=== PATIENT | female | born 1945 | race Caucasian/White ===

== ENCOUNTER 2018-08-04 22:31 | Emergency (ER) | payer MEDICARE ==
[~2018-08-04] VITALS: Ht 157.5 cm; Wt 68.0 kg
[2018-08-04 22:32] VITALS: Ht 157.5 cm; Wt 68.0 kg
[2018-08-04 22:49] LABS: BASOPHILS 0.2 % (0-2); EOSINOPHILS 2.4 % (0-7); HEMOGLOBIN 15.8 g/dL (12-16); IMMATURE GRANULOCYTES 0.2 % (0-5); LYMPHOCYTES 40.5 % (15-50); MCH 28.4 pg (26.0-34.0); MCHC 32.9 g/dL (31.0-37.0); MCV 86.3 fL (80.0-100.0); MEAN PLATELET VOLUME 10.3 fL (7.4-10.4); MONOCYTES 7.8 % (2-11); NEUTROPHILS 48.9 % (40-80); PLATELET COUNT 308 10x3/uL (130-400); RBC 5.56 10x6/uL (4.00-5.40); RDW 14.3 % (11.5-14.5); WBC 10.3 10x3/uL (4.8-10.8)
[2018-08-04 23:16] LABS: ALBUMIN 4.1 g/dL (3.4-5.0); ALKALINE PHOSPHATASE 72 U/L (46-116); ALT (SGPT) 23 U/L (10-68); BILIRUBIN - TOTAL 0.31 mg/dL (0.2-1.3); CALC OSMOLALITY 288 mosm/kg (275-300); CALCIUM 9.2 mg/dL (8.5-10.1); CARBON DIOXIDE 25.9 mmol/L (21.0-32.0); CHLORIDE - SERUM 101 mmol/L (98-107); GLUCOSE 193 mg/dL (74-106); POTASSIUM - SERUM 3.2 mmol/L (3.5-5.1); PROTEIN - SERUM 8.7 g/dL (6.4-8.2); SODIUM 141 mmol/L (136-145); UREA NITROGEN 21 mg/dL (7-18); eGFR NON AFRICAN AMERICAN 57 mL/min (90-120)
[2018-08-04 23:26] LABS: CKMB 2.7 U/L (0.0-3.6); CREATINE KINASE 173 UL (21-215); TROPONIN-I < 0.017 ng/mL (0.000-0.060)
[2018-08-05] MEDS ORDERED: HYDROCODON-ACE1 EAC7 PO (03:43)
[2018-08-05 04:52] VITALS: BP 143/73
== END 2018-08-05 04:52 | disposition home or self-care (01) ==
LOC: D.ER 22:31
PROVIDERS: Family Medicine
DX: S43.101A Unspecified dislocation of right acromioclavicular joint, initial encounter (principal); W19.XXXA Unspecified fall, initial encounter; Y93.89 Activity, other specified; Y92.019 Unspecified place in single-family (private) house as the place of occurrence of the external cause; E87.6 Hypokalemia; I10 Essential (primary) hypertension; I44.7 Left bundle-branch block, unspecified